=== PATIENT | female | born 1975 | race Caucasian/White ===

== ENCOUNTER 2016-05-08 17:40 | Emergency (ER) | payer SELFPAY ==
--- NOTE | 2016-05-08 18:35 | ER Document Report ---
ED Medical Screen (RME) - General Stated Complaint: RIGHT SIDE PAIN Time seen by provider: 18:32 Mode of Arrival: Ambulatory Information source: Patient Notes: 40-year-old female presents to ED for right lower abdominal pain off and on for a while. States she felt a pop and is felt a little knot in that area that is not there when she lays down but is present when she stands up. Patient denies nausea and vomiting. She states she does not have a ovary on the right side. TRAVEL OUTSIDE OF THE [place] IN LAST 30 DAYS: No - Related Data Allergies/Adverse Reactions: codeine [Codeine] Allergy (Verified 05/08/16 18:30) oxycodone [Oxycodone] Allergy (Verified 05/08/16 18:30) propoxyphene napsylate [From Darvocet-N 100] Allergy (Verified 05/08/16 18:30) Past Medical History GI Medical History: Reports: Hx Gastroesophageal Reflux Disease Psychiatric Medical History: Denies: Hx Depression Physical Exam - Vital signs Vitals: Temp Pulse Resp BP Pulse Ox 98.7 F 89 16 124/83 99 05/08/16 17:44 05/08/16 17:44 05/08/16 17:44 05/08/16 17:44 05/08/16 17:44 Course - Vital Signs Vital signs: Temp Pulse Resp BP Pulse Ox 98.7 F 89 16 124/83 99 05/08/16 17:44 05/08/16 17:44 05/08/16 17:44 05/08/16 17:44 05/08/16 17:44
[2016-05-08 18:57] LABS: ABSOLUTE BASOPHILS # (AUTO) 0.1 10^3/uL (0.0-0.2); ABSOLUTE EOSINOPHILS # (AUTO) 0.2 10^3/uL (0.0-0.6); ABSOLUTE MONOCYTES (AUTO) 0.7 10^3/uL (0.1-1.4); ABSOLUTE NEUT (AUTO) 5.3 10^3/uL (1.7-8.2); BASOPHILS % (AUTO) 0.7 % (0-2); EOSINOPHILS % (AUTO) 2.2 % (0-6); HEMOGLOBIN 12.2 g/dL (12.0-15.5); HGB HCT DIFFERENCE -0.4; LYMPHOCYTES % (AUTO) 24.2 % (13-45); MEAN CORPUSCULAR HEMOGLOBIN 28.1 pg (27.0-33.4); MEAN CORPUSCULAR HGB CONC 32.9 g/dL (32.0-36.0); MEAN CORPUSCULAR VOLUME 85 fl (80-97); MONOCYTES % (AUTO) 8.4 % (3-13); RED BLOOD COUNT 4.33 10^6/uL (3.72-5.28); RED CELL DISTRIBUTION WIDTH 13.8 % (11.5-14.0); SEGMENTED NEUTROPHILS % (AUTO) 64.5 % (42-78); WHITE BLOOD COUNT 8.2 10^3/uL (4.0-10.5)
[2016-05-08 19:00] LABS: APPEARANCE,URINE CLEAR; BILIRUBIN,URINE NEGATIVE (NEGATIVE); GLUCOSE, URINE NEGATIVE (NEGATIVE); KETONES,URINE NEGATIVE (NEGATIVE); LEUKOCYTE ESTERASE,URINE NEGATIVE (NEGATIVE); NITRITE,URINE NEGATIVE (NEGATIVE); PROTEIN,URINE NEGATIVE (NEGATIVE); UROBILINOGEN,URINE NEGATIVE mg/dL (<2.0)
[2016-05-08 19:15] LABS: ALANINE AMINOTRANSFERASE 27 U/L (9-52); ALBUMIN 4.2 g/dL (3.5-5.0); ALKALINE PHOSPHATASE 74 U/L (38-126); ANION GAP 10 (5-19); ASPARTATE AMINO TRANSFERASE 21 U/L (14-36); BILIRUBIN,TOTAL 0.6 mg/dL (0.2-1.3); BLOOD UREA NITROGEN 17 mg/dL (7-20); CALCIUM 9.7 mg/dL (8.4-10.2); CARBON DIOXIDE 25 mmol/L (22-30); CHLORIDE 105 mmol/L (98-107); CREATININE RESULT 0.74 mg/dL (0.52-1.25); GLUCOSE 88 mg/dL (75-110); POTASSIUM 4.4 mmol/L (3.6-5.0); SODIUM 139.5 mmol/L (137-145); TOTAL PROTEIN 7.3 g/dL (6.3-8.2)
[2016-05-08] MEDS ORDERED: HYDROCODONE/ACETAMINOPHEN 5-325 MG 6 TAB/DSPK PO PRN (21:33)
--- NOTE | 2016-05-08 21:35 | ER Document Report ---
ED GI/ - General Chief Complaint: Abdominal Pain Stated Complaint: RIGHT SIDE PAIN Time seen by provider: 21:34 Mode of Arrival: Ambulatory Information source: Patient TRAVEL OUTSIDE OF THE [place] IN LAST 30 DAYS: No - HPI Patient complains to provider of: Pelvic pain Onset: Other - 3 months Timing/Duration: Intermittent Quality of pain: Achy Severity at maximum: Mild Severity in ED: Mild Pain Level: 2 Location: Pelvis Vaginal bleeding (Compared to normal period): None Associated symptoms: None Exacerbated by: Standing Relieved by: Denies Similar symptoms previously: No Recently seen / treated by doctor: No Notes: 05/09/16 01:50 Patient is a 40-year-old female presents to the emergency room complaining of right-sided pelvic pain that is been going on intermittently for the past 3 months, she states it comes and goes, is worse when she is standing up or trying to lift something, yesterday she states she felt a pop in the area and has been having some dull achy pain in the area ever since, she denies any nausea vomiting or diarrhea, no dysuria or hematuria, no fever or chills, no vaginal discharge or irregular bleeding, denies any concern for sexually transmitted disease, patient reports a history of a right oophorectomy approximately one year ago due to a torsion, which was caused by a large hemorrhagic cyst, she also reports a cholecystectomy in the past - Related Data Allergies/Adverse Reactions: codeine [Codeine] Allergy (Verified 05/08/16 18:30) oxycodone [Oxycodone] Allergy (Verified 05/08/16 18:30) propoxyphene napsylate [From Darvocet-N 100] Allergy (Verified 05/08/16 18:30) Past Medical History - General Information source: Patient - Social History Smoking Status: Never Smoker Chew tobacco use (# tins/day): No Frequency of alcohol use: None Family History: Reviewed & Not Pertinent Patient has suicidal ideation: No Patient has homicidal ideation: No Renal/ Medical History: Denies: Hx Peritoneal Dialysis GI Medical History: Reports: Hx Gastroesophageal Reflux Disease Psychiatric Medical History: Denies: Hx Depression Review of Systems - Review of Systems Constitutional: No symptoms reported EENT: No symptoms reported Cardiovascular: No symptoms reported Respiratory: No symptoms reported Gastrointestinal: See HPI Genitourinary: See HPI Female Genitourinary: No symptoms reported Musculoskeletal: No symptoms reported Skin: No symptoms reported Hematologic/Lymphatic: No symptoms reported Neurological/Psychological: No symptoms reported -: Yes All other systems reviewed and negative Physical Exam - Vital signs Vitals: Temp Pulse Resp BP Pulse Ox 98.7 F 89 16 124/83 99 05/08/16 17:44 05/08/16 17:44 05/08/16 17:44 05/08/16 17:44 05/08/16 17:44 Interpretation: Normal - General General appearance: Appears well, Alert - HEENT Head: Normocephalic, Atraumatic Eyes: Normal Pupils: PERRL - Respiratory Respiratory status: No respiratory distress Chest status: Nontender Breath sounds: Normal Chest palpation: Normal - Cardiovascular Rhythm: Regular Heart sounds: Normal auscultation Murmur: No - Abdominal Inspection: Normal Distension: No distension Bowel sounds: Normal Tenderness: Other - Mild tenderness with small area of bulging in the right inguinal space when patient stands up, the area is reducible inconsistent with a small inguinal hernia Organomegaly: No organomegaly - Back Back: Normal, Nontender - Extremities General upper extremity: Normal inspection, Nontender, Normal color, Normal ROM , Normal temperature General lower extremity: Normal inspection, Nontender, Normal color, Normal ROM , Normal temperature, Normal weight bearing. No: Carito's sign - Neurological Neuro grossly intact: Yes Cognition: Normal Orientation: AAOx4 Nubia Coma Scale Eye Opening: Spontaneous Hector Coma Scale Verbal: Oriented Hector Coma Scale Motor: Obeys Commands Hector Coma Scale Total: 15 Speech: Normal Motor strength normal: LUE, RUE, LLE, RLE Sensory: Normal - Psychological Associated symptoms: Normal affect, Normal mood - Skin Skin Temperature: Warm Skin Moisture: Dry Skin Color: Normal Course - Re-evaluation Re-evalutation: 05/09/16 01:52 Patient was small right-sided inguinal hernia that easily reduces, laboratory findings were unremarkable and discussed with patient at bedside, she was given pain medication and information to follow-up with a surgeon in the next week, advised to return if symptoms worsen, patient acknowledges understanding and agreement with this plan - Vital Signs Vital signs: Temp Pulse Resp BP Pulse Ox 98.7 F 76 20 127/86 H 100 05/08/16 17:44 05/08/16 22:18 05/08/16 22:18 05/08/16 22:18 05/08/16 22:18 - Laboratory Result Diagrams: 05/08/16 18:40 05/08/16 18:40 Laboratory results interpreted by me: 05/08/16 18:40 Urine Ascorbic Acid 40 H Discharge - Discharge Clinical Impression: Inguinal hernia Qualifiers: Obstruction and gangrene presence: without obstruction or gangrene Laterality: unilateral Recurrence: non-recurrent Qualified Code(s): K40.90 - Unilateral inguinal hernia, without obstruction or gangrene, not specified as recurrent Condition: Stable Disposition: HOME, SELF-CARE Instructions: Abdominal Pain ([facility]), Hernia ([facility]) Additional Instructions: Follow-up with a surgeon within the next week. Return to the emergency room immediately if symptoms worsen or any additional concerns. Refrain from heavy lifting or strenuous exercise. Referrals: DONNIE CANTRELL MD [ACTIVE STAFF] - Follow up as needed
[2016-05-08 22:21] VITALS: BP 127/86
== END 2016-05-08 22:22 | disposition home or self-care (01) ==
LOC: ER 17:40
DX: K40.90 Unilateral inguinal hernia, without obstruction or gangrene, not specified as recurrent (principal); R10.9 Unspecified abdominal pain; K21.9 Gastro-esophageal reflux disease without esophagitis; Z88.6 Allergy status to analgesic agent; Z90.49 Acquired absence of other specified parts of digestive tract
CPT/HCPCS: 36415; 80053; 81001; 84703; 85025; 99284

== ENCOUNTER → 2017-08-05 | Outpatient (CLI) | payer SELFPAY | LOC: HHS 09:18 | DX: Z12.83 Encounter for screening for malignant neoplasm of skin (principal) ==